=== PATIENT | male | born 2005 | race Caucasian/White ===

== ENCOUNTER 2023-09-12 17:14 | Emergency (ER) | payer SELFPAY ==
[2023-09-12 17:19] VITALS: BP 127/65; PULSE 63; RESP 14; TEMP 36.8; O2SAT 100
--- NOTE | 2023-09-12 18:28 | ED.GENADULT ---
HPI - General Adult General Chief complaint: Skin/Abscess/Foreign Body Stated complaint: lump to inner left thigh Time Seen by Provider: 09/12/23 18:18 Source: patient Mode of arrival: ambulatory Limitations: no limitations History of Present Illness HPI narrative: This is a 17-year-old male who presents to the ED with chief complaint of a lump to the skin to the left posterior thigh a noticed about a week ago. Reports it is firm to touch. There is some discomfort with palpation significant pain or tenderness. Denies any drainage or surrounding erythema. Denies any injury. Denies fevers, chills. Patient states that he has been tanning recently and wants to make sure that it is not cancer. Related Data Allergies Allergy/AdvReac Type Severity Reaction Status Date / Time No Known Allergies Allergy Verified 09/12/23 18:21 Review of Systems Review of Systems: All systems as dictated in HPI Exam Narrative: GENERAL: Well-appearing, well-nourished, and in no acute distress. HEAD: Normocephalic, atraumatic. EYES: PERRLA and EOMI. ENT: Nares clear, no rhinorrhea or epistaxis. Mucous membranes moist. Oropharynx without tonsillar hypertrophy exudate or other lesions. NECK: Supple. No adenopathy or masses. CHEST: No respiratory distress. Clear to auscultation. No wheezes rales or rhonchi HEART: Regular rate and rhythm. No murmur heard. Normal peripheral pulses. ABDOMEN: Soft, nontender, nondistended, normal active bowel sounds. MSK: Normal range of motion. No edema. SKIN: Firm, semi mobile, nontender superficial skin lesion noted to the left posterior thigh. About 2 cm in diameter. No surrounding erythema. No tenderness. NEURO: Alert and oriented x3. No focal deficits. PSYCH: Normal mood and affect. Course Vital Signs Vital signs: Vital Signs Temperature 98.2 F 09/12/23 17:19 Pulse Rate 63 09/12/23 17:19 Respiratory Rate 14 09/12/23 17:19 Blood Pressure 127/65 09/12/23 17:19 Pulse Oximetry 100 09/12/23 17:19 Temperature 98.2 F 09/12/23 17:19 Pulse Rate 65 09/12/23 19:46 Respiratory Rate 15 09/12/23 19:46 Blood Pressure 132/78 09/12/23 19:46 Pulse Oximetry 100 09/12/23 19:46 Medical Decision Making MDM Narrative Medical decision making narrative: This is a 17-year-old male who presents to the ED for chief complaints of left posterior thigh skin lesion. Vitals are normal. Exam shows small area of firm somewhat mobile tissue collection to the left posterior thigh. No tenderness. No erythema or drainage to suggest abscess. Exam is most consistent with lipoma. Discussed with the patient that it is a benign finding. Encouraged follow-up with PCP. Pt will be discharged in stable condition. Return precautions given and supportive measures discussed. Pt is understanding and agreeable with plan for discharge and follow-up with PCP. Vital Signs Vital Signs: Vital Signs Temperature 98.2 F 09/12/23 17:19 Pulse Rate 63 09/12/23 17:19 Respiratory Rate 14 09/12/23 17:19 Blood Pressure 127/65 09/12/23 17:19 Pulse Oximetry 100 09/12/23 17:19 Temperature 98.2 F 09/12/23 17:19 Pulse Rate 65 09/12/23 19:46 Respiratory Rate 15 09/12/23 19:46 Blood Pressure 132/78 09/12/23 19:46 Pulse Oximetry 100 09/12/23 19:46 Discharge Plan Discharge Clinical Impression: Lipoma Patient Disposition: Home, Self-Care Condition: Stable Instructions: Antibiotic Form Additional Instructions: Your exam today is consistent with a lipoma. It is very benign and should not cause any significant problems. Follow-up with regular doctor on this. If you have any new or worsening symptoms please return to the ER for further evaluation. Follow-up/Referrals: Hanh Ray MD [Primary Care Provider] - Time of Disposition: 19:06
[2023-09-12 19:46] VITALS: BP 132/78; PULSE 65; RESP 15; O2SAT 100
== END 2023-09-12 19:48 | disposition home or self-care (01) ==
LOC: ANHED 19:24
PROVIDERS: Emergency Provider Physician Assistant; PCP Family Medicine
DX: D17.24 Benign lipomatous neoplasm of skin and subcutaneous tissue of left leg (principal)
CPT/HCPCS: 99281